=== PATIENT | male | born 1990 | race Caucasian/White ===

== ENCOUNTER 2018-06-19 13:50 | Emergency (ER) | payer OTHER ==
[2018-06-19 16:10] LABS: Urine Blood NEGATIVE (NEG); Urine Glucose NEGATIVE (NEG); Urine Protein NEGATIVE (NEG)
[2018-06-19] MEDS ORDERED: NA CHLORIDE 0.9% 1,000 ML ONE (16:14)
[2018-06-19 16:35] LABS: Absolute Lymphocytes (CBC) 1.8 K/uL (0.7-4.9); Absolute Monocytes 0.6 K/uL (0.1-1.3); Absolute Neutrophil 4.8 K/uL (1.8-8.0); Basophils % 0.2 % (0-1.3); Eosinophils % 1.6 % (0-4.4); Hematocrit 48.4 % (39.6-49.0); Lymphocytes % 24.8 % (15.3-44.8); MCH 29.9 pg (27.0-35.0); MCV 87.8 fL (80-100); MPV 9.2 fL (7.6-11.3); Monocytes % 8.2 % (3.3-12.3); RBC Red Blood Cell Count 5.51 M/uL (4.33-5.43)
[2018-06-19 16:40] LABS: ALT/SGPT 36 U/L (12-78); AST/SGOT 21 U/L (15-37); Albumin 4.6 g/dL (3.4-5.0); Alkaline Phosphatase 65 U/L (45-117); Amylase Level 69 U/L (25-115); BUN Blood Urea Nitrogen 11 mg/dL (7-18); Bicarbonate 32 mmol/L (21-32); Bilirubin Direct < 0.1 mg/dL (0-0.2); Bilirubin Total 0.4 mg/dL (0.2-1.0); Glucose Level 80 mg/dL (74-106); Lipase 139 U/L (73-393); Potassium 3.9 mmol/L (3.5-5.1); Protein, Total 8.5 g/dL (6.4-8.2); Sodium Level 142 mmol/L (136-145)
[2018-06-19 16:44] LABS: Urine Bacteria <20 /HPF (NONE SEEN); Urine Culture Reflex Order NOT NEEDED; Urine Mucus 1+ /HPF (NONE SEEN); Urine RBC <5 /HPF (NONE SEEN)
--- NOTE | 2018-06-19 19:04 | RAD REPORT ---
EXAM DESCRIPTION: CTAbdomen Pelvis W Contrast - 06/19/2018 6:44 pm CLINICAL HISTORY: Abdominal pain. right lower abdomen/groin pain COMPARISON: CT ABD PELVIS W CONTRAST dated 04/05/2008; CT ABD PELVIS W CONTRAST dated 01/03/2007 TECHNIQUE: Biphasic CT imaging of the abdomen and pelvis was performed with 100 ml non-ionic IV cont rast. All CT scans are performed using dose optimization technique as appropriate and may include automated exposure control or mA/KV adjustment according to patient size. FINDINGS: The lung bases are clear. The liver, spleen, pancreas, adrenal glands and kidneys are within normal limits. No bowel obstruction, free air, free fluid or abscess. The appendix is normal. No evidence of signi ficant lymphadenopathy. No suspicious bony findings. Mild fluid is likely present within the scrotal sac. IMPRESSION: No acute intra-abdominal or pelvic finding.
--- NOTE | 2018-06-19 20:44 | ER ---
Nurse's Notes [facility] Name: June Soria II Age: 28 yrs Sex: Male : 1990 Arrival Date: 06/19/2018 Time: 13:52 Bed 14 Private MD: None, None Diagnosis: Lower abdominal pain, unspecified-and Right Groin Pain Presentation: 06/19 14:26 Presenting complaint: Mother states: " He has been complaining that his groin area is ph hurting, he says it hurts more when you push on it. He was moving some furniture around in his room and I am wondering if he has a hernia." Pt c/o pain in groin, also reports burning w/ urination, hx of urethral sx. Transition of care: patient was not received from another setting of care. Onset of symptoms was June 19, 2018. Risk Assessment: Do you want to hurt yourself or someone else? Patient reports no desire to harm self or others. Initial Sepsis Screen: Does the patient meet any 2 criteria? No. Patient's initial sepsis screen is negative. Does the patient have a suspected source of infection? No. Patient's initial sepsis screen is negative. Care prior to arrival: None. 14:26 Method Of Arrival: Ambulatory ph 14:26 Acuity: ALEXANDRA 3 ph Historical: - Allergies: 14:24 NKDA; ph - PMHx: 14:24 developmental delay; ph - PSHx: 14:24 hypospadius repair; Hernia repair; ph - Immunization history:: Adult Immunizations up to date. - Social history:: Smoking status: Patient/guardian denies using tobacco. - Ebola Screening: : No symptoms or risks identified at this time. Screenin:51 Abuse screen: Denies threats or abuse. Nutritional screening: No deficits noted. mb3 Tuberculosis screening: No symptoms or risk factors identified. Fall Risk No fall in past 12 months (0 pts). Secondary diagnosis (15 points) No IV (0 pts). Ambulatory Aid- None/Bed Rest/Nurse Assist (0 pts). Gait- Impaired (20 pts.). Mental Status- Oriented to own ability (0 pts). Total Arauz Fall Scale indicates Low Risk Score (25-44 pts). Fall prevention measures have been instituted. Placed close to Nursing Station Frequent Obs/Assesments occuring Family Present and informed to notify staff if they need to leave bedside As available Patient and Family Educated on Fall Prevention Program and strategies. Assessment: 15:51 General: Appears distressed, uncomfortable, Behavior is calm, cooperative, appropriate mb3 for age. Pain: Complains of pain in suprapubic area, right inguinal area and left inguinal area. Neuro: Level of Consciousness is awake, alert, obeys commands. Cardiovascular: No deficits noted. Respiratory: No deficits noted. GI: Abdomen is round Bowel sounds present X 4 quads. Abdomen is tender to palpation in right lower quadrant and left lower quadrant Reports lower abdominal pain. : No signs and/or symptoms were reported regarding the genitourinary system. EENT: No signs and/or symptoms were reported regarding the EENT system. Derm: No signs and/or symptoms reported regarding the dermatologic system. Musculoskeletal: No signs and/or symptoms reported regarding the musculoskeletal system. 16:55 Reassessment: No changes from previously documented assessment. Patient and/or family mb3 updated on plan of care and expected duration. Pain level reassessed. Patient is alert, oriented x 3, equal unlabored respirations, skin warm/dry/pink. 20:21 Reassessment: No changes from previously documented assessment. Patient and/or family mb3 updated on plan of care and expected duration. Pain level reassessed. Patient is alert, oriented x 3, equal unlabored respirations, skin warm/dry/pink. Vital Signs: 14:24 BP 132 / 92; Pulse 67; Resp 18; Temp 98.6; Pulse Ox 97% on R/A; Weight 65.77 kg; Height ph 5 ft. 3 in. (160.02 cm); Pain 9/10; 16:55 BP 111 / 76; Pulse 82; Resp 16; Pulse Ox 100% on R/A; mb3 18:23 BP 103 / 76; Pulse 93; Resp 16; Pulse Ox 97% on R/A; mb3 19:59 BP 135 / 88; Pulse 96; Resp 16; Pulse Ox 100% on R/A; mb3 14:24 Body Mass Index 25.69 (65.77 kg, 160.02 cm) ph ED Course: 13:52 Patient arrived in ED. sb2 13:53 None, None is Private Physician. sb2 14:25 Arm band placed on. ph 14:28 Triage completed. ph 15:30 Benjamin Ruiz, RN is Primary Nurse. mb3 15:31 Balwinder Valverde PA is PHCP. cp 15:31 Matt Turpin MD is Attending Physician. cp 15:53 Patient has correct armband on for positive identification. Placed in gown. Bed in low mb3 position. Call light in reach. 16:00 Inserted saline lock: 22 gauge in left antecubital area, using aseptic technique. Blood mb3 collected. 16:03 Oral contrast given. vr 18:43 CT Abd/Pelvis - W/Contrast: give oral contrast In Process Unspecified. EDMS 18:43 CT completed. Patient tolerated procedure well. Patient moved back from CT. jj2 19:47 US Scrotum Testicles In Process Unspecified. EDMS 21:13 No provider procedures requiring assistance completed. IV discontinued, intact, mb3 bleeding controlled, No redness/swelling at site. Pressure dressing applied. Administered Medications: 16:19 Drug: NS 0.9% 1000 ml Route: IV; Rate: 1 bolus; Site: left antecubital; mb3 20:23 Follow up: Response: No adverse reaction; IV Status: Completed infusion; IV Intake: mb3 1000ml Intake: 20:23 IV: 1000ml; Total: 1000ml. mb3 Outcome: 20:44 Discharge ordered by MD. cp 21:13 Discharged to home ambulatory, with family. mb3 21:13 Condition: stable 21:13 Discharge instructions given to patient, family, Instructed on discharge instructions, follow up and referral plans. medication usage, Demonstrated understanding of instructions, follow-up care, medications, Prescriptions given X 1. 21:14 Patient left the ED. mb3 Signatures: Dispatcher [employer] EDMS Jarret Arrington jBeatrice Menendez Reina Velez RN RN ph Balwinder Valverde PA PA cp Mary Burton 2 Benjamin Ruiz, RN RN mb3
--- NOTE | 2018-06-19 20:45 | EDPHYS ---
Physician Documentation [facility] Name: Juen Soria II Age: 28 yrs Sex: Male : 1990 Arrival Date: 06/19/2018 Time: 13:52 Bed 14 Private MD: None, None ED Physician Matt Turpin HPI: 06/19 16:00 This 28 yrs old Male presents to ER via Ambulatory with complaints of Groin cp Pain. 16:00 The patient presents with pain to right groin area. cp 16:00 Onset: The symptoms/episode began/occurred today. Associated signs and symptoms: cp Pertinent positives: dysuria, Pertinent negatives: constipation, diarrhea, fever, vomiting. Severity of symptoms: in the emergency department the symptoms are unchanged, despite home interventions. Patient with history of developmental delay. Mother reports patient has complained of pain to right groin area and she is concerned for possible hernia. Mother reports patient has been moving furniture around in room recently. Historical: - Allergies: 14:24 NKDA; ph - PMHx: 14:24 developmental delay; ph - PSHx: 14:24 hypospadius repair; Hernia repair; ph - Immunization history:: Adult Immunizations up to date. - Social history:: Smoking status: Patient/guardian denies using tobacco. - Ebola Screening: : No symptoms or risks identified at this time. ROS: 16:05 Constitutional: Negative for body aches, chills, fever, poor PO intake. cp 16:05 Eyes: Negative for injury, pain, redness, and discharge. cp 16:05 ENT: Negative for drainage from ear(s), ear pain, sore throat, difficulty swallowing, difficulty handling secretions. 16:05 Cardiovascular: Negative for chest pain, edema, palpitations. 16:05 Respiratory: Negative for cough, shortness of breath, wheezing. 16:05 Abdomen/GI: Positive for abdominal pain, of the right lower quadrant, right groin pain, Negative for nausea, vomiting, and diarrhea, constipation, anorexia. 16:05 Back: Negative for radiated pain. 16:05 : Negative for penile pain, testicular pain 16:05 Skin: Negative for cellulitis, rash. 16:05 Neuro: Negative for altered mental status, dizziness, weakness. 16:05 All other systems are negative. Exam: 16:12 Constitutional: The patient appears in no acute distress, alert, awake, non-toxic, well cp developed, well nourished. 16:12 Head/Face: Normocephalic, atraumatic. cp 16:12 Eyes: Periorbital structures: appear normal, Conjunctiva: normal, no exudate, no injection, Sclera: no appreciated abnormality, Lids and lashes: appear normal, bilaterally. 16:12 ENT: External ear(s): are unremarkable, Ear canal(s): are normal, clear, TM's: are normal, no evidence of bulging, no erythema, Nose: is normal, Mouth: Lips: moist, Oral mucosa: pink and intact, moist, Posterior pharynx: is normal, airway is patent, no erythema, no exudate. 16:12 Neck: External neck: is normal. 16:12 Chest/axilla: Inspection: normal, Palpation: is normal, no crepitus, no tenderness. 16:12 Cardiovascular: Rate: normal, Rhythm: regular. 16:12 Respiratory: the patient does not display signs of respiratory distress, Respirations: normal, no use of accessory muscles, no retractions, no splinting, no tachypnea, labored breathing, is not present, Breath sounds: are clear throughout, no decreased breath sounds, no stridor, no wheezing. 16:12 Abdomen/GI: Inspection: abdomen appears normal, Bowel sounds: active, all quadrants, Palpation: soft, in all quadrants, mild abdominal tenderness, in the right lower quadrant and right groin area, rebound tenderness, is not appreciated, Hernia: not appreciated, noted in the right inguinal area and right femoral area, tenderness, that is mild. 16:12 Back: pain, is absent, ROM is normal. 16:12 : Male external genitalia: swelling: is not appreciated, tenderness, is not appreciated. 16:12 Skin: cellulitis, is not appreciated, no rash present. Vital Signs: 14:24 BP 132 / 92; Pulse 67; Resp 18; Temp 98.6; Pulse Ox 97% on R/A; Weight 65.77 kg; Height ph 5 ft. 3 in. (160.02 cm); Pain 9/10; 16:55 BP 111 / 76; Pulse 82; Resp 16; Pulse Ox 100% on R/A; mb3 18:23 BP 103 / 76; Pulse 93; Resp 16; Pulse Ox 97% on R/A; mb3 19:59 BP 135 / 88; Pulse 96; Resp 16; Pulse Ox 100% on R/A; mb3 14:24 Body Mass Index 25.69 (65.77 kg, 160.02 cm) ph MDM: 15:31 Patient medically screened. cp 16:00 Differential diagnosis: appendicitis, UTI, urinary retention, prostatitis, urethritis, cp hernia. 20:42 Data reviewed: vital signs, nurses notes, lab test result(s), radiologic studies, CT cp scan, ultrasound. 20:42 Counseling: I had a detailed discussion with the patient and/or guardian regarding: the cp historical points, exam findings, and any diagnostic results supporting the discharge/admit diagnosis, lab results, radiology results, the need for outpatient follow up, a family practitioner, to return to the emergency department if symptoms worsen or persist or if there are any questions or concerns that arise at home. 06/19 15:52 Order name: Amylase, Serum; Complete Time: 16:56 06/19 15:52 Order name: Basic Metabolic Panel; Complete Time: 16:56 06/19 16:56 Interpretation: Normal except: GFR 73. 06/19 15:52 Order name: CBC with Diff; Complete Time: 16:56 06/19 16:57 Interpretation: Normal except: RBC 5.51. 06/19 15:52 Order name: Creatinine for Radiology; Complete Time: 16:56 06/19 15:52 Order name: Hepatic Function; Complete Time: 16:56 06/19 19:09 Interpretation: Normal except: TP 8.5; GLOB 3.9. 06/19 15:52 Order name: Lipase; Complete Time: 16:56 06/19 15:52 Order name: Urine Microscopic Only; Complete Time: 16:56 06/19 15:52 Order name: IV Saline Lock; Complete Time: 16:19 06/19 15:52 Order name: Labs collected and sent; Complete Time: 16:20 06/19 15:52 Order name: Urine Dipstick-Ancillary (obtain specimen); Complete Time: 16:02 06/19 15:52 Order name: CT Abd/Pelvis - W/Contrast: give oral contrast; Complete Time: 19:07 06/19 16:04 Order name: Urine Dipstick--Ancillary (enter results); Complete Time: 16:37 eb 06/19 16:37 Interpretation: Reviewed. cp 06/19 19:09 Order name: US Scrotum Testicles cp Administered Medications: 16:19 Drug: NS 0.9% 1000 ml Route: IV; Rate: 1 bolus; Site: left antecubital; mb3 20:23 Follow up: Response: No adverse reaction; IV Status: Completed infusion; IV Intake: mb3 1000ml Disposition: 06/20 19:05 Co-signature as Attending Physician, Matt Turpin MD. rn Disposition: 06/19/18 20:44 Discharged to Home. Impression: Lower abdominal pain, unspecified - and Right Groin Pain. - Condition is Stable. - Discharge Instructions: Abdominal Pain, Adult. - Prescriptions for Naprosyn 500 mg Oral Tablet - take 1 tablet by ORAL route 2 times per day take with food; 20 tablet. - Medication Reconciliation Form, Thank You Letter, Antibiotic Education, Prescription Opioid Use form. - Follow up: Private Physician; When: 1 - 2 days; Reason: Recheck today's complaints. - Problem is new. - Symptoms have improved. Signatures: Dispatcher [employer] EDMatt Gomez MD MD rn Hall, Patricia, RN RN ph Page, Corey, PA PA cp Barnett, Mark, RN RN mb3 Corrections: (The following items were deleted from the chart) 06/19 21:14 20:44 06/19/2018 20:44 Discharged to Home. Impression: Lower abdominal pain, mb3 unspecified - and Right Groin Pain. Condition is Stable. Forms are Medication Reconciliation Form, Thank You Letter, Antibiotic Education, Prescription Opioid Use. Follow up: Private Physician; When: 1 - 2 days; Reason: Recheck today's complaints. Problem is new. Symptoms have improved. cp
--- NOTE | 2018-06-19 22:12 | RAD REPORT ---
EXAM DESCRIPTION: US - Scrotum Testicles - 06/19/2018 7:47 pm CLINICAL HISTORY: Right-sided groin pain Preliminary findings provided at the time of the study. COMPARISON: None. FINDINGS: Bilateral testicular tissue is homogeneous in echogenicity. No intratesticular mass identi fied. Doppler evaluation shows normal intratesticular blood flow pattern. No abnormal enlargement of the epididymal tissue seen and no hyperemia. There is a midline 2.9 centim eter thin-walled anechoic cystic structure. This is most likely a large but otherwise benign epididym al cyst. This most likely arises from the left epididymis but this is not definitive. No hydrocele. No extratesticular mass otherwise noted. No hernia in the right groin was detected. IMPRESSION: No right inguinal hernia was detected on this examination. No testicular abnormality. A 2.9 cm midline thin-walled cystic mass is probably an epididymal cyst that has arisen from the left epididymis. Although large, this mass is not regarded as significant.
== END 2018-06-19 21:14 | disposition home or self-care (01) ==
LOC: ER 13:50
DX: R10.31 Right lower quadrant pain (principal)
CPT/HCPCS: 36415; 74177; 76870; 80048; 80076; 81003; 81015; 82150; 83690; 85025; 96360; 96361; 99284; J7030; Q9967

== ENCOUNTER 2018-07-21 22:35 | Emergency (ER) | payer OTHER ==
--- NOTE | 2018-07-21 23:30 | EDPHYS ---
Physician Documentation [facility] Name: June Soria II Age: 28 yrs Sex: Male : 1990 Arrival Date: 07/21/2018 Time: 22:44 Bed 25 Private MD: Ravinder Carl ED Physician Freedom Brewer HPI: 07/22 00:00 This 28 yrs old Male presents to ER via Ambulatory with complaints of Boil. pm1 00:00 The patient presents with an abscess of the left hamstring. Description: raised. Onset: pm1 The symptoms/episode began/occurred yesterday. Possible cause(s): unknown. Associated signs and symptoms: Pertinent negatives: discharge, drainage, fever. Modifying factors: the symptoms are alleviated by nothing, the symptoms are aggravated by squeezing the lesion and expressing the contents, touching. Severity of symptoms: in the emergency department the symptoms are actually worse. The patient has not experienced similar symptoms in the past. The patient has not recently seen a physician. Historical: - Allergies: 07/21 23:12 NKDA; kr2 - Home Meds: 23:12 None [Active]; kr2 - PMHx: 23:12 developmental delay; kr2 - PSHx: 23:12 hypospadius repair; Hernia repair; kr2 - Immunization history:: Adult Immunizations up to date. - Social history:: Smoking status: Patient/guardian denies using tobacco. - Ebola Screening: : No symptoms or risks identified at this time. ROS: 07/22 00:00 Constitutional: Negative for fever, chills, and weight loss, Eyes: Negative for injury, pm1 pain, redness, and discharge, ENT: Negative for injury, pain, and discharge, Neck: Negative for injury, pain, and swelling, Cardiovascular: Negative for chest pain, palpitations, and edema, Respiratory: Negative for shortness of breath, cough, wheezing, and pleuritic chest pain, Abdomen/GI: Negative for abdominal pain, nausea, vomiting, diarrhea, and constipation, Back: Negative for injury and pain, MS/Extremity: Negative for injury and deformity. Neuro: Negative for headache, weakness, numbness, tingling, and seizure. Skin: Positive for abscess, of the left hamstring, Negative for cellulitis. Exam: 00:00 Constitutional: This is a well developed, well nourished patient who is awake, alert, pm1 and in no acute distress. Head/Face: Normocephalic, atraumatic. Neck: Trachea midline, no thyromegaly or masses palpated, and no cervical lymphadenopathy. Supple, full range of motion without nuchal rigidity, or vertebral point tenderness. No Meningismus. Chest/axilla: Normal chest wall appearance and motion. Nontender with no deformity. No lesions are appreciated. Cardiovascular: Regular rate and rhythm with a normal S1 and S2. No gallops, murmurs, or rubs. Normal PMI, no JVD. No pulse deficits. Respiratory: Lungs have equal breath sounds bilaterally, clear to auscultation and percussion. No rales, rhonchi or wheezes noted. No increased work of breathing, no retractions or nasal flaring. Abdomen/GI: Soft, non-tender, with normal bowel sounds. No distension or tympany. No guarding or rebound. No evidence of tenderness throughout. Back: No spinal tenderness. No costovertebral tenderness. Full range of motion. 00:00 Skin: Appearance: normal except for affected area, abscess, that is small, approximately 1 cm(s), of the left hamstring, No drainage or surrounding cellulitis. Vital Signs: 07/21 23:00 BP 145 / 98 RA Supine (auto/reg); Pulse 55; Resp 18 S; Temp 98.8(O); Pulse Ox 99% on jp3 R/A; Pain 9/10; 23:13 Weight 65.77 kg; Height 5 ft. 3 in. (160.02 cm); kr2 23:59 BP 130 / 85; Pulse 62; Resp 17; Pulse Ox 97% on R/A; kr2 23:13 Body Mass Index 25.69 (65.77 kg, 160.02 cm) kr2 Procedures: 23:27 I \T\ D: Incision and drainage was performed for an abscess of the left left hamstring pm1 Prepped with alcohol, Drained small amount Cultures obtained. the patient tolerated the procedure well, Needle aspiration of small abscess to left hamstring. Abscess to small for incision with scalpel and packing. MDM: 23:13 Patient medically screened. pm1 23:27 Data reviewed: vital signs. Data interpreted: Pulse oximetry: on room air is 99 %. pm1 Interpretation: normal. Counseling: I had a detailed discussion with the patient and/or guardian regarding: the historical points, exam findings, and any diagnostic results supporting the discharge/admit diagnosis, the need for outpatient follow up, to return to the emergency department if symptoms worsen or persist or if there are any questions or concerns that arise at home, pending wound culture. 07/21 23:32 Order name: Wound Culture pm1 07/21 23:32 Order name: Wound Culture EDMS Administered Medications: 23:34 Drug: Tylenol #3 (300 mg-30 mg) 1 tablet Route: PO; kr2 23:59 Follow up: Response: No adverse reaction; Pain is decreased kr2 23:45 Drug: Tetanus-Diphtheria Toxoid Adult 0.5 ml {[employer]: [employer]. Exp: kr2 08/21/2019. Lot #: [id number]. } Route: IM; Site: left deltoid; 23:59 Follow up: Response: No adverse reaction kr2 Disposition: 07/22 06:53 Co-signature as Attending Physician, Freedom Brewer MD I agree with the assessment and tw4 plan of care. Attestation: The patient's history, exam findings, diagnostics, and a summary of any interventions or procedures was reviewed in detail with Daniel Morris NP. Disposition: 07/21/18 23:30 Discharged to Home. Impression: Cutaneous abscess of left lower limb. - Condition is Stable. - Discharge Instructions: Skin Abscess. - Prescriptions for Tylenol- Codeine #3 300-30 mg Oral Tablet - take 1 tablet by ORAL route every 6 hours As needed; 20 tablet. Bactrim DS 800- 160 mg Oral Tablet - take 1 tablet by ORAL route every 12 hours for 10 days; 20 tablet. - Medication Reconciliation Form, Thank You Letter, Antibiotic Education, Prescription Opioid Use form. - Follow up: Ravinder Carl MD; When: 2 - 3 days; Reason: Recheck today's complaints, Continuance of care, Re-evaluation by your physician. Follow up: Emergency Department; When: As needed; Reason: Worsening of condition. - Problem is new. - Symptoms have improved. Signatures: Dispatcher [employer] EDMS Daniel Morris NP RADIATION OFFICER pm1 Na Ramon RN RN kr2 Freedom Brewer MD MD tw4 Corrections: (The following items were deleted from the chart) 07/21 23:31 23:27 Wound Culture ordered. EDMS EDMS 07/22 00:05 07/21 23:30 07/21/2018 23:30 Discharged to Home. Impression: Cutaneous abscess of left kr2 lower limb. Condition is Stable. Forms are Medication Reconciliation Form, Thank You Letter, Antibiotic Education, Prescription Opioid Use. Follow up: Ravinder Carl; When: 2 - 3 days; Reason: Recheck today's complaints, Continuance of care, Re-evaluation by your physician. Follow up: Emergency Department; When: As needed; Reason: Worsening of condition. Problem is new. Symptoms have improved. pm1
--- NOTE | 2018-07-21 23:30 | ER ---
Nurse's Notes [facility] Name: June Soria II Age: 28 yrs Sex: Male : 1990 Arrival Date: 07/21/2018 Time: 22:44 Bed 25 Private MD: Ravinder Carl Diagnosis: Cutaneous abscess of left lower limb Presentation: 07/21 23:06 Presenting complaint: Patient states: he has a sore on his leg, mother at bedside and kr2 states he just told her about it today. He reports he did try to "pop it" today and it "just made it worse and nothing came out". Transition of care: patient was not received from another setting of care. Onset of symptoms was July 21, 2018. Risk Assessment: Do you want to hurt yourself or someone else? Patient reports no desire to harm self or others. Initial Sepsis Screen: Does the patient have a suspected source of infection? Yes: Other: abscess. Initial Sepsis Screen: Does the patient meet any 2 criteria? No. Patient's initial sepsis screen is negative. Care prior to arrival: None. 23:06 Method Of Arrival: Ambulatory kr2 23:06 Acuity: ALEXANDRA 4 kr2 Triage Assessment: 23:09 General: Appears in no apparent distress. comfortable, well groomed, well developed, kr2 well nourished, Behavior is calm, cooperative. Pain: Complains of pain in lateral aspect of left thigh Pain does not radiate. Pain currently is 9 out of 10 on a pain scale. Quality of pain is described as aching, tender, Pain began today Is continuous. EENT: Oral mucosa is moist. Neuro: Level of Consciousness is awake, alert, obeys commands, Oriented to person, place, time, situation. Cardiovascular: Capillary refill < 3 seconds in bilateral fingers Patient's skin is warm and dry. Respiratory: Airway is patent Respiratory effort is even, unlabored, Respiratory pattern is regular, symmetrical. GI: Abdomen is flat, non-distended, Patient currently denies nausea, vomiting. : Denies burning with urination. Derm: Skin is intact, is healthy with good turgor, Skin is pink, warm \\T\\ dry. Abscess located on lateral aspect of left thigh is quarter sized, has no drainage, is red, is raised. Musculoskeletal: Circulation, motion, and sensation intact. Historical: - Allergies: :12 NKDA; kr2 - Home Meds: 23:12 None [Active]; kr2 - PMHx: 23:12 developmental delay; kr2 - PSHx: 23:12 hypospadius repair; Hernia repair; kr2 - Immunization history:: Adult Immunizations up to date. - Social history:: Smoking status: Patient/guardian denies using tobacco. - Ebola Screening: : No symptoms or risks identified at this time. Screenin:08 Abuse screen: Denies threats or abuse. Denies injuries from another. Nutritional kr2 screening: No deficits noted. Tuberculosis screening: No symptoms or risk factors identified. Fall Risk None identified. Assessment: 23:12 General: See triage assessment. kr2 07/22 00:00 Reassessment: Patient appears in no apparent distress at this time. Patient and/or kr2 family updated on plan of care and expected duration. Pain level reassessed. Patient is alert, oriented x 3, equal unlabored respirations, skin warm/dry/pink. Small amount of blood noted after needle aspiration of abscess by provider to left later thigh by provider, covered site with gauze and secured with tape. Vital Signs: 07/21 23:00 BP 145 / 98 RA Supine (auto/reg); Pulse 55; Resp 18 S; Temp 98.8(O); Pulse Ox 99% on jp3 R/A; Pain 9/10; 23:13 Weight 65.77 kg; Height 5 ft. 3 in. (160.02 cm); kr2 23:59 BP 130 / 85; Pulse 62; Resp 17; Pulse Ox 97% on R/A; kr2 23:13 Body Mass Index 25.69 (65.77 kg, 160.02 cm) kr2 ED Course: 22:44 Patient arrived in ED. es 22:44 Ravinder Carl MD is Private Physician. es 23:01 Na Ramon, HARISH is Primary Nurse. kr2 23:03 Bed in low position. Call light in reach. Side rails up X2. Pulse ox on. NIBP on. jp3 23:04 Daniel Morris NP is PHCP. pm1 23:04 Freedom Brewer MD is Attending Physician. pm1 23:08 Triage completed. kr2 23:11 Arm band placed on left wrist. kr2 23:29 Ravinder Carl MD is Referral Physician. pm1 23:40 culture of abscess drainage sent to lab. kr2 07/22 00:02 No provider procedures requiring assistance completed. Patient did not have IV access kr2 during this emergency room visit. 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 Exp: kr2 08/21/2019. Lot #: [id number]. } Route: IM; Site: left deltoid; 23:59 Follow up: Response: No adverse reaction kr2 Outcome: 23:30 Discharge ordered by . pm1 07/22 00:02 Discharged to home ambulatory, with family. kr2 Condition: good Discharge instructions given to patient, family, Instructed on discharge instructions, follow up and referral plans. medication usage, dressing changes to abscess, keeping area clean and dry Demonstrated understanding of instructions, follow-up care, medications, dressing changes, keeping area clean and dry Prescriptions given X 2. 00:05 Patient left the ED. kr2 Signatures: Luda Yusuf Patrick, [employer]INC[employer]SEM[employer] SUPERVISOR pm1 Na Ramon RN RN kr2 Addy Jo jp3 Corrections: (The following items were deleted from the chart) 00:02 00:00 Reassessment: Patient appears in no apparent distress at this time. Patient kr2 and/or family updated on plan of care and expected duration. Pain level reassessed. Patient is alert, oriented x 3, equal unlabored respirations, skin warm/dry/pink. kr2
[2018-07-21] MEDS ORDERED: CODEINE 30MG/APAP 300MG TAB ONE (23:35)
[2018-07-21] MEDS ORDERED: TETANUS & DIPHTHERIA TOX,ADULT 0.5 ML VIAL ONE (23:57)
== END 2018-07-22 00:05 | disposition home or self-care (01) ==
LOC: ER 22:35
PROC: 0J9P0ZZ Drainage of Left Lower Leg Subcutaneous Tissue and Fascia, Open Approach (ICD-10-PCS; principal; 2018-07-22)
DX: L02.416 Cutaneous abscess of left lower limb (principal); Z23 Encounter for immunization
CPT/HCPCS: 87070; 87205; 90714; 99283